=== PATIENT | female | born 1985 | race African-American/Black ===

== ENCOUNTER 2016-08-22 18:06 | Inpatient (IN) ==
[2016-08-22] MEDS ORDERED: SODIUM CHLORIDE 0.9% 1,000 ML IV STA ×2 (18:27→19:55)
--- NOTE | 2016-08-22 18:33 | Emergency Department Note ---
Sal Galdamez Mantricia, am scribing for, and in the presence of, Sylwia Philippe DO 18:30. IJose Martin Debra, DO, personally performed the services described in this documentation, ascribed by Nino Huang in my presence, and it is both accurate and complete 833 . Arrival - Arrival Stated Complaint: Body Aches, N,V Weakness ED Nursing Triage Note: C/o body aches, congestion, runny nose, cough, and subjective fever-onset 2 days ago. Mode of Arrival: Wheelchair Limitations: No Limitations Source: Patient - History of Present Illness HPI Narrative: Pt is a 31 y/o black female arriving to ED via wheelchair with c/o N/V that onset 2 days ago. Pt states that she is also experiencing body aches, cough, congestion, and SOB. She denies any long car rides or being around anyone sick to cause these symptoms. Pt admits to smoking daily. She has a PMHx of HTN. Pt reports no other complaints to ED. Onset (ago): day(s) Consistency: constant Date of Last Menstrual Period: "last week" Allergies/Adverse Reactions: Allergies Allergy/AdvReac Type Severity Reaction Status Date / Time No Known Allergies Allergy Verified 09/20/15 13:06 Home Medications: Home Medications Medication Instructions Recorded Confirmed Type No Known Home Medications [No 08/22/16 08/22/16 History Known Home Medications] Review of System - Review of System 12 point system: reviewed and no additional remarkable complaints except as stated - Review of System Constitutional: Present: fever. Absent: chills, diaphoresis Respiratory: Present: cough Cardiovascular: Present: dyspnea on exertion. Absent: chest pain Gastrointestinal: Present: abdominal pain, nausea, vomiting. Absent: diarrhea Musculoskeletal: Absent: arm pain, back pain, leg pain, neck pain Medical,Surgical,& Family Hx - Medical History Cardio: History of: Hypertension (chronic) - Surgical History Reproductive Surgeries: Surgical HX of;: Section (c/s x2) Patient denies;: Hysterectomy, Tubal Ligation - Family History Family History: Reports;: Family Diabetes (mother), Family Heart Disease (mother ), Family Stroke (mother) - Social History Smoking Status: Current every day smoker Frequency of Alcohol Use: Occasionally Type of Drug Use: None Exam Vital Signs: Vital Signs Temperature 102.1 F H 08/22/16 18:22 Pulse Rate 116 H 08/22/16 19:26 Respiratory Rate 24 08/22/16 19:26 Blood Pressure 185/111 08/22/16 18:45 O2 Sat by Pulse Oximetry 100 08/22/16 19:26 - General General appearance: alert, in no apparent distress, lethargic, obese, other ( poor hygiene) - Head Head exam: Present: atraumatic, normocephalic, normal inspection - Eye Eye exam: Present: normal appearance, PERRL, EOMI - ENT ENT exam: Present: normal exam, normal oropharynx, mucous membranes dry, TM's normal bilaterally, normal external ear exam - Neck Neck exam: Present: normal inspection, full ROM, trachea midline. Absent: tenderness - Chest Chest inspection: Present: normal inspection, symmetric chest wall rise. Absent : tenderness - Respiratory Respiratory exam: Present: normal lung sounds bilaterally, other (decreased breath sounds) - Cardiovascular Cardiovascular exam: Present: regular rate, normal rhythm, normal heart sounds - Abdominal Exam Abdominal exam: Present: soft, normal bowel sounds. Absent: distention, tenderness, guarding, rebound - Extremities Exam Extremities exam: Present: normal inspection, full ROM, normal capillary refill. Absent: tenderness, pedal edema - Back Exam Back exam: Present: normal inspection, full ROM. Absent: tenderness - Neurological Exam Neurological exam: Present: alert, oriented X3, CN II-XII intact, normal gait, reflexes normal - Psychiatric Psychiatric exam: Present: normal affect, normal mood - Skin Skin exam: Present: warm, dry, intact, normal color Course Course Narrative: spoke with hospitalist who will admit the pt. for pneumonia. pt is stable at this time Results - Labs CBC & BMP: 08/22/16 18:28 08/22/16 18:28 - Diagnostic Findings Procedure: Chest x-ray: report reviewed by me ( Findings which can be seen with so-called round pneumonia in the right upper to midlung zone. There is associated right hilar prominence which makes it difficult to exclude underlying adenopathy/mass and follow-up chest x-ray is recommended.) Disposition Clinical Impression: Pneumonia Case discussed with: patient, patient's family Disposition: Still a Patient Condition: Stable Time of Disposition: 21:46
[2016-08-22 18:43] LABS: Basophils % 0.1 % (0.0-0.8); Hematocrit 37.8 VOL% (35.7-47.0); Hemoglobin 13.3 GM/DL (12.0-16.0); Immature Granulocytes % 1.1 %; Immature Granulocytes Absolute 0.16 #; Lymphocytes # 0.9 10*3/uL (1.4-4.0); Lymphocytes % 5.8 % (21.3-54.2); Mean Corpuscular HGB Conc 35.2 GM/DL (32-36); Mean Corpuscular Hemoglobin 27 PG (27-34); Mean Corpuscular Volume 77.5 FL (87-102); Mean Platelet Volume 12.1 FL (9.6-12.0); Monocytes # 0.4 10*3/uL (0.11-0.8); Monocytes % 2.5 % (1.7-12.7); Neutrophils # 13.4 10*3/uL (1.4-7.4); Neutrophils % 90.5 % (38.7-73.9); Platelet Count 106 T/CUMM (130-400); Red Blood Count 4.88 MC/CUMM (3.8-5.5); Red Cell Distribution Width 15.2 % (9.3-17.3); White Blood Count 14.8 T/CUMM (4-12)
[2016-08-22] MEDS ORDERED: ACETAMINOPHEN 500 MG TABLET PO STA (18:54)
[2016-08-22] MEDS ORDERED: IBUPROFEN 800 MG TABLET PO STA (18:54)
[2016-08-22] MEDS ORDERED: IBUPROFEN 800 MG TABLET ONE (18:56)
[2016-08-22] MEDS ORDERED: ACETAMINOPHEN 500 MG TABLET ONE (18:57)
--- NOTE | 2016-08-22 18:59 | XRay Report ---
Portable chest Date: 08/22/2016 Clinical history: Shortness of breath Comparison: None Technique: Portable AP sitting chest Findings: The heart is normal in size. 102 mm rounded consolidation in the right upper to midlung zone with prominent right hilum. No acute osseous findings. Impression: Findings which can be seen with so-called round pneumonia in the right upper to midlung zone. There is associated right hilar prominence which makes it difficult to exclude underlying adenopathy/mass and follow-up chest x-ray is recommended. PROCEDURE INTERPRETED AT [facility] DEPARTMENT OF RADIOLOGY Final Report Signed by: Dr. Amalia Posey
[2016-08-22 19:11] LABS: Alanine Aminotransferase 24 U/L (13-56); Alkaline Phosphatase 47 U/L (45-117); Aspartate Amino Transferase 40 U/L (0-37); Blood Urea Nitrogen 11 MG/DL (7-18); Calcium 8.2 MG/DL (8.5-10.1); Glucose 137 MG/DL (74-106); Osmolality,Calculated 258.9 MOS/KG (273-304); Potassium 2.8 MMOL/L (3.5-5.1); Sodium 129 MMOL/L (136-145); Total Protein 7.8 G/DL (6.4-8.3); Troponin I Only 0.126 NG/ML (0.00-0.045)
[2016-08-22] MEDS ORDERED: ALBUTEROL/IPRATROPIUM 3 ML NEB RESP TX STA (19:12)
[2016-08-22] MEDS ORDERED: cefTRIAXone 1,000 MG in SODIUM CHLORIDE 0.9% 100 ML IV STA (19:12)
[2016-08-22] MEDS ORDERED: cefTRIAXone 1,000 MG VIAL ONE (19:25)
[2016-08-22] MEDS ORDERED: SODIUM CHLORIDE 0.9% 100 ML IV ONE (19:25)
[2016-08-22] MEDS ORDERED: HYDROcodone/CHLORPHENIRAMINE ER 5 ML UDCUP PO ONE ×2 (19:40→20:12)
[2016-08-22 19:42] LABS: Apearance,Urine CLOUDY (Clear); Bacteria,Urine Occasional /HPF (Few); Bilirubin,Urine Negative (Negative); Blood, Urine Large mg/dL (Negative); Glucose,Urine (UA) 50 mg/dL (Negative); Granular Casts,Urine 5 /LPF (0-1); Ketones,Urine Negative (Negative); Mucus,Urine Occasional /LPF (Occasional); Nitrite,Urine Negative (Negative); Protein,Urine 100 MG/DL; RBC,Urine 1 /HPF (0-4); Squamous Epithelial Cell,Urine Few /HPF (0-10); Urine Color Amber (Yellow); Urine Specific Gravity 1.018 (1.001-1.035); WBC,Urine 1 /HPF (0-6)
[2016-08-22] MEDS ORDERED: POTASSIUM CHLORIDE 20 MEQ TABLET PO STA (19:55)
[2016-08-22 19:56] LABS: Barbiturates Screen,Urine Negative (Negative); Benzodiazepines Screen,Urine Negative (Negative); Cannabinoid Screen,Urine Positive (Negative); Opiate Screen,Urine Negative (Negative); Phencyclidine Screen,Urine Negative (Negative)
[2016-08-22] MEDS ORDERED: POTASSIUM CHLORIDE 20 MEQ TABLET PO ONE ×2 (20:12→22:22)
--- NOTE | 2016-08-22 21:35 | CT Report ---
Exam: CT chest with contrast, PE study Date: 08/22/2016 Comparison: Chest x-ray 08/22/2016 Reason: Shortness of breath, tachycardia Technique: Axial images of the chest were obtained after administration of 80 cc of IV Omnipaque 350 intravenous contrast. Coronal reformatted images were also acquired. The study was performed per pulmonary embolism protocol. Total DLP: 376.80 Findings: There is no evidence of pulmonary embolism through the segmental pulmonary arteries. Suboptimal contrast in the subsegmental pulmonary arteries. The heart is in normal in size with no pericardial effusion. No evidence of aortic dissection. Dense consolidation/atelectasis in the right upper lobe with air bronchograms. There is associated diffuse hilar density which makes it difficult to exclude minimal right hilar adenopathy. No pleural effusion with minimal atelectasis/infiltration in the right lower lobe. Impression: Right upper lobe pneumonia with associated atelectasis. It is difficult to exclude minimal adenopathy or other pathology at the level of the right hilum and continued follow-up chest x-ray is recommended document clearing. No definite pulmonary emboli in the opacified pulmonary arteries. This CT exam was performed using one or more the following dose reduction techniques: Automated exposure control, adjustment of the MA and/or KV according to patient size, or use of iterative reconstruction technique. PROCEDURE INTERPRETED AT [facility] DEPARTMENT OF RADIOLOGY Final Report Signed by: Dr. Amalia Posey
[2016-08-22] MEDS ORDERED: BISACODYL 5 MG TABLET PO PRN (22:14)
[2016-08-22] MEDS ORDERED: ALBUTEROL 2.5 MG/3 ML NEB RESP TX PRN (22:14)
[2016-08-22] MEDS ORDERED: guaiFENesin/DM ER 600-30 MG TABLET PO PRN (22:14)
[2016-08-22] MEDS ORDERED: LACTATED RINGERS IV ONE (22:18)
--- NOTE | 2016-08-22 22:30 | Hospitalist History & Physical ---
Assessment and Plan - Time spent with patient Time spent with patient: Greater than 30 minutes (1) Pneumonia Status: Acute Assessment and plan: Chest x-ray shows right lung pneumonia. Patient given a gram of Rocephin in ER patient will be admitted to the ICU on aztreonam and Levaquin with DuoNeb. Consult pulmonology. Current Visit: Yes (2) Encephalopathy, metabolic Status: Acute Assessment and plan: Admit to ICU for electrolyte correction. Current Visit: Yes (3) Sepsis Status: Acute Assessment and plan: Patient is tachycardic with a heart rate in the 120s, tachypneic, lactic acid 2.1. Patient admitted to the ICU on broad-spectrum antibiotics and IV fluid resuscitation. Current Visit: Yes (4) Acute kidney failure Status: Acute Assessment and plan: Creatinine 1.5. Gentle IV hydration. Current Visit: Yes (5) Hypertension Status: Acute Assessment and plan: Continue to monitor BP. Continue home meds. Current Visit: Yes (6) Hypokalemia Status: Acute Current Visit: Yes (7) Hyponatremia Status: Acute Current Visit: Yes History of Present Illness Chief complaint: fever, productive cough History of present illness: Ms. Pizarro is a 31 year old black female with a past medical history significant for hypertension who presents to the ER tonight with complaints of fatigue, fever and cough x 2 days. At the time of the exam, the patient is lethargic and difficult to arouse; however, her sister is at bedside and provided much of the history that we were able to glean. 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 Her sister, whom she lives with, reports that the patient has been extremely lethargic since Friday , sleeping most of Friday and . She also reports that the patient does have a cough productive of clear/white sputum. Patient was briefly aroused by shaking and sternal rub. She denies headache, chest pain, abdominal pain, change in bowel habits. CXR shows pneumonia in the right upper/middle lobe. Patient is tachycardic with a heart rate 120s, respiratory rate 18-35. Labs are remarkable for WBC 14.8, sodium 129, potassium 2.8, chloride 95, BUN 11, creatinine 1.5, glucose 137, lactic acid 2.1, total creatinine kinase 1191, troponin 0.126. Urine drug screen is positive for amphetamine/methamphetamine and cannabinoids. Urinalysis is positive for UTI. Case been discussed with Dr. Ayon, admitting physician, and patient will be admitted to the ICU with sepsis and pneumonia. Patient is a full code. Home meds have been reviewed and reconciled. Home Medications Medication Instructions Recorded Confirmed Type No Known Home Medications [No 08/22/16 08/22/16 History Known Home Medications] Allergies Allergy/AdvReac Type Severity Reaction Status Date / Time No Known Allergies Allergy Verified 09/20/15 13:06 Medical,Surgical,& Family Hx - Medical History Cardio: History of: Hypertension (chronic) - Surgical History Reproductive Surgeries: Surgical HX of;: Section (c/s x2) Patient denies;: Hysterectomy, Tubal Ligation - Family History Family History: Reports;: Family Diabetes (mother), Family Heart Disease (mother ), Family Stroke (mother) - Social History Smoking Status: Current every day smoker Frequency of Alcohol Use: Occasionally Type of Drug Use: None Marital Status: Single Lives With:: Sibling Functional capacity: independent ambulation ROS unobtainable: due to encephalopathy, other (decreased level of consciousness ) Exam - Constitutional Vitals: Period Temp Pulse Resp BP Sys/Segundo Pulse Ox Last 24 Hr 102.1 F-102.1 F 115-121 18-35 152-185/100-111 96-100 General appearance: mild distress, morbidly obese - Head Head exam: Present: normal inspection, normocephalic, atraumatic - Eye Eye exam: Present: EOMI Pupils: Present: GABRIELLE - ENT ENT exam: Present: normal exam, normal external ear exam - Neck Neck exam: Present: normal inspection. Absent: lymphadenopathy, tenderness - Respiratory Respiratory exam: Present: decreased breath sounds, rhonchi. Absent: rales, stridor, wheezes - Cardiovascular Cardiovascular exam: Present: tachycardia. Absent: carotid bruit, rubs - GI/Abdominal GI/Abdominal exam: Present: normal bowel sounds, soft. Absent: guarding, mass, tenderness, rebound - Extremities Exam Extremities exam: Present: normal inspection, normal capillary refill, full ROM. Absent: edema - Neurological Exam Neurological exam: Present: CN II-XII intact, reflexes normal - Psychiatric Psychiatric exam: Present: flat affect - Skin Skin exam: Present: normal color, warm, dry, intact. Absent: cyanosis, mottled Results - Labs CBC & BMP: 08/22/16 18:28 08/22/16 18:28 Lab Results: I have reviewed the past 24 hour labs - Diagnostic Findings Procedure: Chest x-ray: image reviewed by me, report reviewed by me, CT - chest : image reviewed by me, report reviewed by me Sepsis - Sepsis Classification of Sepsis: Sepsis - Physical Exam Physical Exam: On physical exam, patient is tachypneic, tachycardic with an elevated white count of 14.8 and lactic acid of 2.1. - Physical Exam Respiratory exam: decreased breath sounds, rhonchi Capillary Refill: Less Than 3 Seconds Peripheral pulses: Radial (L): 2+, Radial (R): 2+, Dorsalis Pedis (L) PM: 2+, Dorsalis Pedis (R) PM: 2+ Cardiovascular exam: tachycardia Skin exam: normal color
[2016-08-23] MEDS: ALBUTEROL/IPRATROPIUM 3 ML NEB RESP TX SCH ×4 (00:13→19:31)
[2016-08-23] MEDS: ENOXAPARIN 40 MG/0.4 ML SYRINGE SUBCUT SCH ×2 (00:41→22:24)
[2016-08-23] MEDS: LEVOFLOXACIN INJ 750 MG in PREMIX 1 EACH IV SCH (00:41)
[2016-08-23 01:50] LABS: Albumin 2.6 G/DL (3.4-5.0); Bilirubin,Total 0.5 MG/DL (0.2-1.0); Calcium 7.5 MG/DL (8.5-10.1); Magnesium 1.4 MG/DL (1.8-2.4); Osmolality,Calculated 267.2 MOS/KG (273-304); Total Protein 5.9 G/DL (6.4-8.3)
[2016-08-23] MEDS: AZTREONAM 2,000 MG in SODIUM CHLORIDE 0.9% 100 ML IV SCH ×4 (02:30→18:46)
[2016-08-23] MEDS: ONDANSETRON 4 MG/2 ML VIAL IV PRN (02:31)
[2016-08-23] MEDS: SODIUM CHLORIDE 0.9% 1,000 ML IV SCH ×4 (02:49→22:24)
[2016-08-23 03:15] LABS: ABG Base Excess -1.5 MMOL/L (-2.5-2.5); ABG Oxygen Saturation 92.1 % (95-100); ABG PCO2 35.1 MM HG (35-48); ABG PH 7.414 (7.35-7.45); ABG PO2 62.6 MM HG (80-95); ABG TCO2 19.9 MMOL/L (23-27); Allen Test Positive
[2016-08-23] MEDS ORDERED: MAGNESIUM SULF RIDER 2 GM in PREMIX 1 EACH IV ONE (03:46)
[2016-08-23 04:47] LABS: Basophils # 0.1 10*3/uL (0.0-0.2); Basophils % 0.5 % (0.0-0.8); Hematocrit 34.1 VOL% (35.7-47.0); Hemoglobin 11.6 GM/DL (12.0-16.0); Immature Granulocytes % 7.1 %; Immature Granulocytes Absolute 0.71 #; Lymphocytes # 0.6 10*3/uL (1.4-4.0); Lymphocytes % 5.8 % (21.3-54.2); Mean Corpuscular Hemoglobin 27 PG (27-34); Mean Corpuscular Volume 78.2 FL (87-102); Mean Platelet Volume 11.7 FL (9.6-12.0); Monocytes # 0.3 10*3/uL (0.11-0.8); Monocytes % 3.2 % (1.7-12.7); Neutrophils # 8.3 10*3/uL (1.4-7.4); Neutrophils % 83.4 % (38.7-73.9); Red Blood Count 4.36 MC/CUMM (3.8-5.5); Red Cell Distribution Width 15.6 % (9.3-17.3)
[2016-08-23 04:50] LABS: Platelet Count 96 T/CUMM (130-400)
[2016-08-23 05:14] LABS: Band Neutrophils 8 % (0-10); Burr Cells Slight; Hypochromasia 1+; Lymphocytes 6 % (20-55); Ovalocytes Slight; Platelet Estimate Decreased; Segmented Neutrophils 84 % (50-85); Total Cells Counted 100
--- NOTE | 2016-08-23 07:30 | EKG Report ---
Stationary ECG Study [facility] ER Test Date: 08/22/2016 6:51:19 PM Pat Name: JOSE MIGUEL NEW Department: Room: 119 Gender: F [employer]: : 1985 Requested by: Sylwia Philippe Order Number: [id number] Reading MD: MALLORIE GARCIA Intervals [place] Rate: 118 P: 65 IA: 124 QRS: 79 QRSD: 90 T: -11 QT: 340 QTc: 410 Interpretive Statements SINUS TACHYCARDIA Electronically Signed On 08-23-16 11:48:58 CDT by MALLORIE GARCIA [email or web address]
--- NOTE | 2016-08-23 07:54 | Pulmonology Consult Note ---
Assessment and Plan (1) Smoker Status: Acute Assessment and plan: The patient certainly needs to quit smoking and will give her a nicotine patch. Current Visit: Yes (2) Pneumonia Status: Acute Assessment and plan: Patient has a significant right upper lobe pneumonia and she will continue with IV antibiotics. Current Visit: Yes Qualifiers: Laterality: right Lung location: upper lobe of lung (3) Sepsis Status: Acute Assessment and plan: Patient came in lethargic with fever and tachycardia and elevated lactic acid level with dehydration and was felt to be septic. She is getting fluids and antibiotics. Current Visit: Yes (4) Hyponatremia Status: Acute Assessment and plan: Her sodium is up to 134 today. Current Visit: Yes (5) Hypokalemia Status: Acute Assessment and plan: Her potassium was 2.8 but now is 3.0. Current Visit: Yes (6) Hypertension Status: Acute Assessment and plan: Patient has a history of hypertension and this will be watched closely. Current Visit: Yes History of Present Illness Chief complaint: Pneumonia History of present illness: Ms. Pizarro is a 31 year old black female that is a smoker and has a history of hypertension. She has been in fairly good health until about 2 or 3 days ago. She says she started having some fatigue and chills and maybe a little fever. She has been coughing some and yesterday she was very short of breath. She felt worse so she came in and was found to have a significant right upper lobe pneumonia. She is admitted for further treatment. She works at [employer] and says she gets hot and cold frequently. She has never had any lung problems. She says she smokes less than a pack a day. She does smoke marijuana. She is otherwise been in reasonably good health. Home Medications Medication Instructions Recorded Confirmed Type No Known Home Medications [No 08/22/16 08/22/16 History Known Home Medications] Allergies Allergy/AdvReac Type Severity Reaction Status Date / Time No Known Allergies Allergy Verified 09/20/15 13:06 - Constitutional Constitutional: Present: chills, fatigue, fever(s). Absent: weight loss - EENT Eyes: Absent: loss of vision Ears: Absent: decreased hearing Nose, mouth and throat: Absent: dysphagia, headache(s), sinus pressure, sore throat - Cardiovascular Cardiovascular: Present: chest pain at rest, dyspnea on exertion. Absent: edema , orthopnea, palpitations, PND - Respiratory Respiratory: Present: cough, dyspnea, wheezing, pain on inspiration, change in phlegm color (She has had minimal sputum). Absent: hemoptysis - Gastrointestinal Gastrointestinal: Absent: abdominal pain, change in bowel habits, dysphagia, nausea, vomiting - Genitourinary Genitourinary: Absent: difficulty urinating, dysuria, hematuria, urinary frequency - Musculoskeletal Musculoskeletal: Absent: arthralgias, muscle weakness - Neurological Neurological: Absent: abnormal speech, focal weakness, paresthesias - Psychiatric Psychiatric: Absent: anxiety, depression Exam (Pulmonay) H&P - Constitutional Vitals: Period Temp Pulse Resp BP Sys/Segundo Pulse Ox Last 24 Hr 96.6 F-102.1 F 85-121 16-35 100-185/63-111 93-100 General appearance: mild distress (She does have some coughing and shortness of breath), over weight - Head Head exam: Present: normal inspection, normocephalic - Eye Eye exam: Present: EOMI. Absent: scleral icterus Pupils: Present: GABRIELLE - ENT ENT exam: Present: normal exam - Neck Neck exam: Present: normal inspection. Absent: lymphadenopathy, thyromegaly - Respiratory Respiratory exam: Present: decreased breath sounds (She has some coarse breath sounds in rales in the right upper lobe), rales, rhonchi. Absent: wheezes - Cardiovascular Cardiovascular exam: Present: regular rate and rhythm. Absent: gallop, systolic murmur - GI/Abdominal GI/Abdominal exam: Present: normal bowel sounds, soft. Absent: organomegaly, tenderness - Extremities Exam Extremities exam: Absent: calf tenderness, edema - Neurological Exam Neurological exam: Present: alert, oriented X3, CN II-XII intact. Absent: motor sensory deficit - Psychiatric Psychiatric exam: Present: normal affect - Skin Skin exam: Present: warm, dry Medical,Surgical,& Family Hx - Medical History Cardio: History of: Hypertension (chronic) - Surgical History Reproductive Surgeries: Surgical HX of;: Section (c/s x2) Patient denies;: Hysterectomy, Tubal Ligation - Family History Family History: Reports;: Family Diabetes (mother), Family Heart Disease (mother ), Family Stroke (mother) - Social History Smoking Status: Current every day smoker Frequency of Alcohol Use: Occasionally Type of Drug Use: None Results - Labs CBC & BMP: 08/23/16 04:39 08/23/16 01:09 Labs: Her PO2 62 with a PCO2 of 35 and a pH of 7.41 on 2 L. - Diagnostic Findings Procedure: Chest x-ray: image reviewed by me, report reviewed by me (Chest x- ray shows a large area of consolidation in the right upper lobe.), CT - chest: image reviewed by me, report reviewed by me (CT confirms extensive right upper lobe pneumonia.)
[2016-08-23] MEDS ORDERED: POTASSIUM CHLORIDE 20 MEQ TABLET PO ONE (09:14)
[2016-08-23] MEDS: PANTOPRAZOLE 40 MG TABLET PO SCH (09:33)
[2016-08-23] MEDS: methylPREDNISolone SOD SUC 40 MG/1 ML VIAL IV SCH ×2 (09:35→16:52)
[2016-08-23] MEDS: NICOTINE 14 MG/24 HR PATCH TRANSDERM SCH (09:39)
--- NOTE | 2016-08-23 10:23 | Hospitalist Progress Note ---
Assessment and Plan (1) Pneumonia Status: Acute Assessment and plan: 1)sepsis- BP stable but lactic acid now 2.8 after hydartion up from 2.1. She is deeply asleep and difficult to arouse. Continue levaquin and azactam for pneumonia in her RUL. Sats good on 2L NC. repeat lactic acid this afternoon. 2)BEL- creatinine is 1.3, coming down. 3)hyponatremia- improved 4)hypokalemia- replace again and recheck this afternoon 5)drug use- positive for meth and MJ in your urine. 6)altered mental status- check head CT- too sleepy to cooperate with exam. Current Visit: Yes Qualifiers: Laterality: right Lung location: upper lobe of lung (2) Sepsis Status: Acute Current Visit: Yes (3) Hyponatremia Status: Acute Current Visit: Yes (4) Acute kidney failure Status: Acute Current Visit: Yes (5) Hypokalemia Status: Acute Current Visit: Yes (6) Hypertension Status: Acute Current Visit: Yes (7) Encephalopathy, metabolic Status: Acute Current Visit: Yes (8) Smoker Status: Acute Current Visit: Yes Hospitalist: Subjective Interval history: Mrs Pizarro remains sleepy but responds to touch and then goes back to sleep. Repeat lactic acid increased a bit despite over 4L IVF given. Her BP is stable, sats good, heart rate in 80s. Exam - Constitutional Vitals: Period Temp Pulse Resp BP Sys/Segundo Pulse Ox Last 24 Hr 96.6 F-102.1 F 85-121 16-35 100-185/63-111 92-100 General appearance: no acute distress, over weight - Head Head exam: Present: normocephalic, atraumatic - Eye Eye exam: Present: EOMI Pupils: Present: GABRIELLE - Respiratory Respiratory exam: Present: rhonchi (bilateral, snoring also) - Cardiovascular Cardiovascular exam: Present: regular rate and rhythm - GI/Abdominal GI/Abdominal exam: Present: normal bowel sounds, soft. Absent: tenderness - Extremities Exam Extremities exam: Absent: edema - Skin Skin exam: Present: warm, dry. Absent: rash Results - Labs CBC & BMP: 08/23/16 04:39 08/23/16 01:09 Lab Results: I have reviewed the past 24 hour labs
--- NOTE | 2016-08-23 11:00 | CT Report ---
Referring physician: Veronika Rojo Exam: CT brain without contrast Date: 08/23/2016 Comparison: None Reason: Lethargy, sepsis Technique: Axial images of the head were obtained without the use of contrast. Total DLP was 1103.60 mGy*cm. Findings: No hydrocephalus or midline shift is present. There is no evidence of an acute infarction, recent intracranial hemorrhage or abnormal mass effect. Benign calcifications with possible empty sella.. The osseous structures appear intact. The mastoid air cells are clear. Mucosal thickening/fluid in the paranasal sinuses, especially the left sphenoid sinus. Impression: No acute intracranial abnormality is identified. Benign calcifications with possible empty sella. Significant left sphenoid sinusitis. The CT exam was performed using one or more of the following dose reduction techniques: Automated exposure control and adjustment of the mA and/or kV according to patient size. PROCEDURE INTERPRETED AT [facility] DEPARTMENT OF RADIOLOGY Final Report Signed by: Dr. Amalia Posey
[2016-08-23 14:18] LABS: Calcium 7.3 MG/DL (8.5-10.1); Osmolality,Calculated 272.8 MOS/KG (273-304); Potassium 4.2 MMOL/L (3.5-5.1)
[2016-08-24] MEDS: LEVOFLOXACIN INJ 750 MG in PREMIX 1 EACH IV SCH ×2 (00:24→23:45)
[2016-08-24] MEDS: methylPREDNISolone SOD SUC 40 MG/1 ML VIAL IV SCH ×4 (00:25→20:53)
[2016-08-24] MEDS: AZTREONAM 2,000 MG in SODIUM CHLORIDE 0.9% 100 ML IV SCH ×4 (00:25→19:30)
[2016-08-24] MEDS: ALBUTEROL/IPRATROPIUM 3 ML NEB RESP TX SCH ×4 (01:48→19:00)
[2016-08-24 03:40] LABS: Allen Test Positive; Pt O2 Delivery Device Room Air
[2016-08-24 03:41] LABS: ABG Base Excess -1.1 MMOL/L (-2.5-2.5); ABG HCO3 23.3 MMOL/L (20-26); ABG Oxygen Saturation 86.4 % (95-100); ABG PCO2 36.2 MM HG (35-48); ABG PH 7.412 (7.35-7.45); ABG PO2 50.4 MM HG (80-95); ABG TCO2 20.8 MMOL/L (23-27)
[2016-08-24 04:44] LABS: Basophils # 0.1 10*3/uL (0.0-0.2); Basophils % 0.9 % (0.0-0.8); Hematocrit 29.9 VOL% (35.7-47.0); Hemoglobin 10.3 GM/DL (12.0-16.0); Immature Granulocytes % 4.3 %; Immature Granulocytes Absolute 0.28 #; Lymphocytes # 0.4 10*3/uL (1.4-4.0); Lymphocytes % 6.1 % (21.3-54.2); Mean Corpuscular HGB Conc 34.4 GM/DL (32-36); Mean Corpuscular Hemoglobin 27 PG (27-34); Mean Corpuscular Volume 77.3 FL (87-102); Mean Platelet Volume 11.9 FL (9.6-12.0); Monocytes # 0.1 10*3/uL (0.11-0.8); Monocytes % 1.8 % (1.7-12.7); Neutrophils # 5.7 10*3/uL (1.4-7.4); Neutrophils % 86.9 % (38.7-73.9); Platelet Count 84 T/CUMM (130-400); Red Blood Count 3.87 MC/CUMM (3.8-5.5); Red Cell Distribution Width 16.1 % (9.3-17.3); White Blood Count 6.5 T/CUMM (4-12)
[2016-08-24 05:17] LABS: Albumin 2.1 G/DL (3.4-5.0); Bilirubin,Total 0.7 MG/DL (0.2-1.0); Calcium 7.7 MG/DL (8.5-10.1); Osmolality,Calculated 279.4 MOS/KG (273-304); Potassium 3.9 MMOL/L (3.5-5.1); Total Protein 5.4 G/DL (6.4-8.3)
[2016-08-24] MEDS: SODIUM CHLORIDE 0.9% 1,000 ML IV SCH ×2 (05:23→06:30)
[2016-08-24 05:35] LABS: Band Neutrophils 6 % (0-10); Hypochromasia 2+; Lymphocytes 5 % (20-55); Metamyelocytes 4 %; Platelet Estimate Decreased; Segmented Neutrophils 85 % (50-85); Total Cells Counted 100
[2016-08-24] MEDS: NICOTINE 14 MG/24 HR PATCH TRANSDERM SCH (09:04)
[2016-08-24] MEDS: PANTOPRAZOLE 40 MG TABLET PO SCH (09:06)
[2016-08-24] MEDS: LISINOPRIL 10 MG TABLET PO SCH (09:06)
--- NOTE | 2016-08-24 09:28 | Pulmonology Progress Note ---
Pulmonary - PN: Subj Interval history: Is a 31-year-old black lady who is a smoker. She has high blood pressure. She has been fairly healthy and she works as [employer]. 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 Was worried that her respiratory distress would worsen but it has now improved and she appears to be stable. Her potassium is been replaced to 3.9. Her blood pressure is up and she recalls that she was on lisinopril. She does not know the dose so we will begin with 10 mg daily. She has no complaints and no new requests. ABGs on room air show a pH of 7.41, PCO2 of 36.2, PO2 of 50.4, bicarb of 23.3 Microbiology. No positive cultures. Lab. Electrolytes are normal. Creatinine is 0.8 with a BUN of 11. Liver function tests are normal. Protein and albumin are low at 5.4 and 2.1 respectively. White blood cell count is dropped from 14,000 806,500 with 87 segs. H&H has dropped to 10.3/29.9 with decrease indices platelet count is dropped to 84,000. Physical exam. Vital signs see below Psychiatric oriented 3 Neurologic. Cranial nerves are intact. Patient moves all 4 extremities. Face is symmetrical. There is no swelling of the lips or tongue. Neck. Symmetrical. No meningismus. Lymphatics. No 7 mandibular cervical or supraclavicular adenopathy. Chest. Loose large airway congestion and a very mild large airway wheeze on the right mainstem bronchus. Heart. No gallop Abdomen. Nontender. Positive bowel sounds Extremities. Nothing to suggest deep venous thrombophlebitis The remainder the physical exam is negative. Plan. 1. Continue present therapy. 2. Monitor anemia, thrombocytopenia and blood pressure 3. Start lisinopril 10 mg daily. Note the patient does not know what dose she takes at home Exam (Progress Note) - Constitutional Vitals: Period Temp Pulse Resp BP Sys/Segundo Pulse Ox Last 24 Hr 98.5 F-98.8 F 64-99 13-38 119-158/71-105 93-100 Results - Labs CBC & BMP: 08/24/16 04:28 08/24/16 04:28
--- NOTE | 2016-08-24 12:24 | Hospitalist Progress Note ---
Assessment and Plan - Time spent with patient Time spent with patient: Less than 30 minutes (1) Acute kidney failure Status: Acute Assessment and plan: Sepsis: BP stable; repeat Lactic acid trending downward to 2.2. she is awake and alert and answering questions appropriately. continue levaquin and azactam for pneumonia in her RUL. Sats are good at 96% on room air. Dr Sultana was consulted for right pneumonia for further evaluation. BEL - improved - Creatinine : 0.80 this a.m. hyponatremia - resolved - NA 140 hypkalemia - resolved - 3.9 hypertension - improved 123/85 - 146/84; Dr Sultana started Patient on Lisinopril 10mg dly. altered mental status - Awake, Alert and oriented and answering questions appropriately.CT report no acute intracranial abnormality is identified. Plan to taper steroids; INT fluids; Transfer to Floor. Continue medication regimen; and Dr Sultana started lisinopril and will continue to monitor BP. Current Visit: Yes (2) Encephalopathy, metabolic Status: Acute Current Visit: Yes (3) Hyponatremia Status: Acute Current Visit: Yes (4) Sepsis Status: Acute Current Visit: Yes Hospitalist: Subjective Interval history: Ms Pizarro had a better night and was able to eat this a.m.; tolerating very well. Exam - Constitutional Vitals: Period Temp Pulse Resp BP Sys/Segundo Pulse Ox Last 24 Hr 98.5 F-98.8 F 64-99 13-38 120-158/74-105 93-100 General appearance: no acute distress, over weight - Head Head exam: Present: normal inspection - Eye Eye exam: Present: EOMI Pupils: Present: GABRIELLE - Neck Neck exam: Present: normal inspection - Respiratory Respiratory exam: Present: other (right upper posterior coarseness ) - Cardiovascular Cardiovascular exam: Present: regular rate and rhythm - GI/Abdominal GI/Abdominal exam: Present: normal bowel sounds, soft. Absent: firm, guarding, tenderness, rebound - Extremities Exam Extremities exam: Present: normal inspection, full ROM - Neurological Exam Neurological exam: Present: alert, oriented X3 - Psychiatric Psychiatric exam: Present: normal affect, normal mood - Skin Skin exam: Present: normal color, warm, dry Results - Labs CBC & BMP: 08/24/16 04:28 08/24/16 04:28 Lab Results: I have reviewed the past 24 hour labs
[2016-08-24] MEDS ORDERED: hydrALAZINE 20 MG/1 ML VIAL IV PRN (15:47)
[2016-08-24] MEDS: amLODIPine 10 MG TABLET PO SCH (15:54)
[2016-08-24] MEDS: ACETAMINOPHEN 325 MG TABLET PO PRN (20:54)
[2016-08-24] MEDS: ENOXAPARIN 40 MG/0.4 ML SYRINGE SUBCUT SCH (23:44)
[2016-08-25] MEDS: ALBUTEROL/IPRATROPIUM 3 ML NEB RESP TX SCH ×4 (00:10→19:48)
[2016-08-25] MEDS: ACETAMINOPHEN 325 MG TABLET PO PRN ×4 (00:25→18:28)
[2016-08-25] MEDS: AZTREONAM 2,000 MG in SODIUM CHLORIDE 0.9% 100 ML IV SCH ×4 (01:46→21:11)
[2016-08-25 05:41] LABS: Basophils # 0.1 10*3/uL (0.0-0.2); Basophils % 0.7 % (0.0-0.8); Hematocrit 31.9 VOL% (35.7-47.0); Immature Granulocytes % 4.9 %; Immature Granulocytes Absolute 0.44 #; Lymphocytes # 0.5 10*3/uL (1.4-4.0); Mean Corpuscular HGB Conc 34.5 GM/DL (32-36); Mean Corpuscular Hemoglobin 27 PG (27-34); Mean Corpuscular Volume 77.6 FL (87-102); Mean Platelet Volume 12.5 FL (9.6-12.0); Monocytes # 0.4 10*3/uL (0.11-0.8); Monocytes % 3.9 % (1.7-12.7); Neutrophils # 7.6 10*3/uL (1.4-7.4); Neutrophils % 84.5 % (38.7-73.9); Red Blood Count 4.11 MC/CUMM (3.8-5.5); Red Cell Distribution Width 15.9 % (9.3-17.3)
[2016-08-25 05:47] LABS: Platelet Count 95 T/CUMM (130-400)
[2016-08-25 06:16] LABS: Calcium 8.3 MG/DL (8.5-10.1); Osmolality,Calculated 276.5 MOS/KG (273-304)
[2016-08-25 07:05] LABS: Band Neutrophils 2 % (0-10); Hypochromasia 1+; Lymphocytes 5 % (20-55); Ovalocytes Slight; Platelet Estimate Decreased; Segmented Neutrophils 92 % (50-85); Total Cells Counted 100
[2016-08-25] MEDS: methylPREDNISolone SOD SUC 40 MG/1 ML VIAL IV SCH ×2 (08:41→21:12)
[2016-08-25] MEDS: NICOTINE 14 MG/24 HR PATCH TRANSDERM SCH (08:42)
[2016-08-25] MEDS: PANTOPRAZOLE 40 MG TABLET PO SCH (08:45)
[2016-08-25] MEDS: LISINOPRIL 10 MG TABLET PO SCH (08:46)
[2016-08-25] MEDS: amLODIPine 10 MG TABLET PO SCH (08:50)
[2016-08-25] MEDS: ONDANSETRON 4 MG/2 ML VIAL IV PRN (08:56)
--- NOTE | 2016-08-25 11:14 | Hospitalist Progress Note ---
Assessment and Plan (1) Pneumonia Status: Acute Assessment and plan: The patient was previously on Levaquin and Azactam; WBCs are noted at 9; however the patient has a left shift with neutrophil percentage noted at 84.5. The patient has been febrile this morning with T-max noted at 101.8. We will obtain blood cultures, discontinue Levaquin and Azactam; and start vancomycin. Sputum culture preliminary for gram-positive cocci yeast; we will start fluconazole 200 mg IV daily. Influenza has been negative thus far. In addition , we will obtain HIV panel and hepatitis panel for good measures. Will recheck labs and chest x-ray in a.m. Current Visit: Yes Qualifiers: Laterality: right Lung location: upper lobe of lung Hospitalist: Subjective Interval history: Patient seen and examined; patient remains febrile; T-max 101.8 on this morning at 715. Exam - Constitutional Vitals: Period Temp Pulse Resp BP Sys/Segundo Pulse Ox Last 24 Hr 98.0 F-101.8 F 81-115 14-22 148-170/74-122 92-100 General appearance: normal weight, no acute distress - Head Head exam: Present: normal inspection, normocephalic - Eye Eye exam: Present: EOMI. Absent: conjunctival injection Pupils: Present: GABRIELLE, normal accommodation - ENT ENT exam: Present: normal exam, normal external ear exam, normal oropharynx - Neck Neck exam: Present: normal inspection. Absent: lymphadenopathy, meningismus, tenderness, thyromegaly - Respiratory Respiratory exam: Present: rhonchi. Absent: rales, stridor, wheezes - Cardiovascular Cardiovascular exam: Present: regular rate and rhythm - GI/Abdominal GI/Abdominal exam: Present: normal bowel sounds, soft - Extremities Exam Extremities exam: Present: normal inspection, normal capillary refill, full ROM. Absent: edema - Back Exam Back exam: Present: normal inspection - Neurological Exam Neurological exam: Present: alert, oriented X3, CN II-XII intact - Psychiatric Psychiatric exam: Present: flat affect - Skin Skin exam: Present: normal color, warm, dry Results - Labs CBC & BMP: 08/25/16 05:30 08/25/16 05:30 Lab Results: I have reviewed the past 24 hour labs
[2016-08-25] MEDS ORDERED: FLUCONAZOLE INJ 200 MG in PREMIX 1 EACH IV SCH (11:30)
--- NOTE | 2016-08-25 13:00 | Pulmonology Progress Note ---
Pulmonary - PN: Subj Interval history: Is a 31-year-old black lady who is a smoker. She has high blood pressure. She has been fairly healthy and she works as [employer]. She was admitted with several days of lethargy and cough and fever and to [facility] to have a large consolidated right upper lung pneumonia. Was worried that her respiratory distress would worsen but it has now improved and she appears to be stable. Her potassium is been replaced to 3.9. Her blood pressure is up and she recalls that she was on lisinopril. She does not know the dose so we will begin with 10 mg daily. She has no complaints and no new requests. ABGs on room air show a pH of 7.41, PCO2 of 36.2, PO2 of 50.4, bicarb of 23.3 Microbiology. No positive cultures. Lab. Electrolytes are normal. Creatinine is 0.8 with a BUN of 11. Liver function tests are normal. Protein and albumin are low at 5.4 and 2.1 respectively. White blood cell count is dropped from 14,000 806,500 with 87 segs. H&H has dropped to 10.3/29.9 with decrease indices platelet count is dropped to 84,000. 08/25/2016. Patient's breathing is much better today. She has a lot less large airway wheezing congestion she is moving air much better. CBC is stable electrolytes are normal creatinine is 1.0 BUNs 11 calcium is 8.3 protein and albumin are low at 5.2 and 2.1 respectively. There are no new microbiology reports. There are no new procedure reports. Labs been reviewed. Medicines have been reviewed. Physical exam. Vital signs see below Psychiatric oriented 3 Neurologic. Cranial nerves are intact. Patient moves all 4 extremities. Face is symmetrical. There is no swelling of the lips or tongue. Neck. Symmetrical. No meningismus. Lymphatics. No 7 mandibular cervical or supraclavicular adenopathy. Chest. Loose large airway congestion and a very mild large airway wheeze on the right mainstem bronchus has improved significantly since 08/24/2016. There is still very mild large airway wheeze but expiration is much more complete and a lot less congested.. Heart. No gallop Abdomen. Nontender. Positive bowel sounds Extremities. Nothing to suggest deep venous thrombophlebitis The remainder the physical exam is negative. Plan. 08/24/2016 1. Continue present therapy. 2. Monitor anemia, thrombocytopenia and blood pressure 3. Start lisinopril 10 mg daily. Note the patient does not know what dose she takes at home 08/25/2016. 1. See today's note above 2. Dr. mercedes Orlando will see the patient tomorrow. Exam (Progress Note) - Constitutional Vitals: Period Temp Pulse Resp BP Sys/Segundo Pulse Ox Last 24 Hr 99.2 F-101.8 F 81-115 18-22 144-170/74-122 92-100 Results - Labs CBC & BMP: 08/25/16 05:30 08/25/16 05:30
[2016-08-25 13:51] LABS: Hepatitis A Ab IgM Quant 0.05 Index; Hepatitis A Ab IgM Result Negative (Negative); Hepatitis B Core IgM Quant 0.14 Index; Hepatitis B Core IgM Result Negative (Negative); Hepatitis B Surface Ag Quant < 0.10 Index; Hepatitis B Surface Ag Result Negative (Negative); Hepatitis C Virus Ab Quant 0.02 Index; Hepatitis C Virus Ab Result Negative (Negative)
[2016-08-25] MEDS: FLUCONAZOLE INJ 100 MG in IV BAG 1 EACH IV SCH (14:02)
[2016-08-25] MEDS: VANCOMYCIN INJ 1,500 MG in SODIUM CHLORIDE 0.9% 500 ML IV SCH (14:24)
[2016-08-25] MEDS: ENOXAPARIN 40 MG/0.4 ML SYRINGE SUBCUT SCH (22:36)
[2016-08-26] MEDS: ALBUTEROL/IPRATROPIUM 3 ML NEB RESP TX SCH ×4 (01:03→19:56)
[2016-08-26] MEDS: AZTREONAM 2,000 MG in SODIUM CHLORIDE 0.9% 100 ML IV SCH ×2 (01:16→09:08)
[2016-08-26] MEDS: VANCOMYCIN INJ 1,500 MG in SODIUM CHLORIDE 0.9% 500 ML IV SCH ×3 (02:31→17:45)
[2016-08-26 06:03] LABS: Basophils % 0.4 % (0.0-0.8); Hematocrit 32.3 VOL% (35.7-47.0); Hemoglobin 11.1 GM/DL (12.0-16.0); Immature Granulocytes % 8.3 %; Immature Granulocytes Absolute 0.62 #; Lymphocytes # 0.6 10*3/uL (1.4-4.0); Lymphocytes % 7.5 % (21.3-54.2); Mean Corpuscular HGB Conc 34.4 GM/DL (32-36); Mean Corpuscular Hemoglobin 27 PG (27-34); Mean Corpuscular Volume 77.5 FL (87-102); Mean Platelet Volume 13.7 FL (9.6-12.0); Monocytes # 0.3 10*3/uL (0.11-0.8); Monocytes % 3.5 % (1.7-12.7); Neutrophils % 80.3 % (38.7-73.9); Red Blood Count 4.17 MC/CUMM (3.8-5.5); Red Cell Distribution Width 16.5 % (9.3-17.3); White Blood Count 7.5 T/CUMM (4-12)
[2016-08-26 06:09] LABS: HIV Antigen/Antibody Result Nonreactive (Nonreactive)
[2016-08-26 06:11] LABS: Platelet Count 77 T/CUMM (130-400)
[2016-08-26] MEDS: LEVOFLOXACIN INJ 750 MG in PREMIX 1 EACH IV SCH (06:24)
[2016-08-26 06:28] LABS: Calcium 7.8 MG/DL (8.5-10.1); Osmolality,Calculated 272.8 MOS/KG (273-304)
[2016-08-26 06:34] LABS: Albumin 2.1 G/DL (3.4-5.0); Bilirubin,Total 0.6 MG/DL (0.2-1.0); Calcium 7.9 MG/DL (8.5-10.1); Magnesium 2.1 MG/DL (1.8-2.4); Osmolality,Calculated 279.4 MOS/KG (273-304); Phosphorous 2.1 MG/DL (2.5-4.9); Total Protein 5.5 G/DL (6.4-8.3)
--- NOTE | 2016-08-26 06:56 | EKG Report ---
Stationary ECG Study [facility] Test Date: 08/26/2016 6:56:50 AM Pat Name: JOSE MIGUEL NEW Department: Room: 220 Gender: F Education Intern: GARCIA : 1985 Requested by: Francois Melendez Order Number: [id number] Reading MD: FERNANDEZ ZAYAS Intervals [place] Rate: 79 P: 69 VT: 152 QRS: 84 QRSD: 101 T: 35 QT: 351 QTc: 385 Interpretive Statements SINUS RHYTHM Electronically Signed On 08-26-16 08:56:36 CDT by FERNANDEZ ZAYAS [email or web address]
[2016-08-26 07:03] LABS: Hypochromasia 1+; Lymphocytes 6 % (20-55); Metamyelocytes 2 %; Microcytosis 1+; Ovalocytes Slight; Segmented Neutrophils 88 % (50-85); Total Cells Counted 100
[2016-08-26 07:04] LABS: Platelet Estimate Decreased
--- NOTE | 2016-08-26 07:54 | XRay Report ---
XR chest 1V portable Indication: COPD Comparison: Chest x-ray 08/22/2016 Technique: Portable AP chest was performed. Findings: Airspace consolidation right upper chest is stable compared to previous study. Stranding is increased in the lower left chest suggesting interval development of atelectatic change. Chest is otherwise stable. Impression: 1. Worsening atelectasis left lung base. 2. Stable confluent airspace disease compatible with consolidation right upper chest. Continued follow-up is recommended to ensure complete resolution. 08/26/2016 7:51 AM PROCEDURE INTERPRETED AT [facility] DEPARTMENT OF RADIOLOGY Final Report Signed by: Dr. John Gee
--- NOTE | 2016-08-26 08:40 | Pulmonology Progress Note ---
Pulmonary - PN: Subj Interval history: This 31-year-old female came in with community-acquired right upper lobe lobar pneumonia. Cultures have been negative thus far. She is on empiric antibiotics. She was septic with an elevated lactic acid level on admission. Discussed the broad-spectrum antibiotics. Follow-up chest x-ray shows little change in the consolidation right upper lobe. She does not have any significant underlying problem that would lead her to have this. Exam (Progress Note) - Constitutional Vitals: Period Temp Pulse Resp BP Sys/Segundo Pulse Ox Last 24 Hr 98.1 F-102.2 F 73-105 18-20 140-156/82-92 92-100 Exam: Patient is alert oriented vital signs normal. She had fever yesterday but none today. Pupils react to light. Throat is clear. Neck supple no bruits. Chest shows rales in the right upper lobe otherwise clear. Heart normal rate rhythm no murmurs. Abdomen soft nontender no masses. Extremities no clubbing cyanosis or edema. Calves nontender Results - Labs CBC & BMP: 08/26/16 05:36 08/26/16 05:36 Lab Results: I have reviewed the past 24 hour labs - Diagnostic Findings Procedure: Chest x-ray: image reviewed by me (She has a round consolidated infiltrate right upper lobe. Her CT scan showed air bronchograms. Again this is quite consistent with a community-acquired pneumonia.) Assessment and Plan (1) Pneumonia Status: Acute Assessment and plan: Community-acquired right upper lobe lobar pneumonia. Pneumococcus would be the most likely organism. No cultures have come back positive. Continue current broad-spectrum antibiotics. Probably need to finish at least 7 days. She had fever initially and then again yesterday. Not unusual for this type pneumonia Current Visit: Yes Qualifiers: Laterality: right Lung location: upper lobe of lung (2) Sepsis Status: Acute Assessment and plan: Initially had elevated lactic acid level. That has resolved. Sepsis controlled. Current Visit: Yes
[2016-08-26] MEDS: PANTOPRAZOLE 40 MG TABLET PO SCH (09:07)
[2016-08-26] MEDS: amLODIPine 10 MG TABLET PO SCH (09:07)
[2016-08-26] MEDS: LISINOPRIL 10 MG TABLET PO SCH (09:08)
[2016-08-26] MEDS: NICOTINE 14 MG/24 HR PATCH TRANSDERM SCH (09:08)
[2016-08-26] MEDS: methylPREDNISolone SOD SUC 40 MG/1 ML VIAL IV SCH ×2 (09:30→20:14)
[2016-08-26] MEDS: FLUCONAZOLE INJ 100 MG in IV BAG 1 EACH IV SCH (13:25)
--- NOTE | 2016-08-26 13:26 | Hospitalist Progress Note ---
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 6)altered mental status- CT was ok, MS at baseline. 7)PUL pneumonia- continue antibiotics- vanc and levaquin and diflucan to cover the sputum culture. Current Visit: Yes Qualifiers: Laterality: right Lung location: upper lobe of lung (2) Sepsis Status: Acute Current Visit: Yes (3) Hyponatremia Status: Acute Current Visit: Yes (4) Acute kidney failure Status: Acute Current Visit: Yes (5) Hypokalemia Status: Acute Current Visit: Yes (6) Hypertension Status: Acute Current Visit: Yes (7) Encephalopathy, metabolic Status: Acute Current Visit: Yes (8) Smoker Status: Acute Current Visit: Yes Hospitalist: Subjective Interval history: Mrs Pizarro is doing ewll on room air and lying flat breathing comfortably this morning. She continues to have fever. Some cough, no shortness of breath. Appetite good. She declares that her drug use has nothing to do with being sick and unresponsive when she was admitted. She denies meth use and says she uses Xpills but doesn't know what is in them. Exam - Constitutional Vitals: Period Temp Pulse Resp BP Sys/Segundo Pulse Ox Last 24 Hr 98.1 F-102.2 F 73-105 18-20 140-156/82-94 92-100 General appearance: no acute distress, morbidly obese - Head Head exam: Present: normocephalic, atraumatic - Eye Eye exam: Present: EOMI. Absent: scleral icterus - Respiratory Respiratory exam: Present: rales (right upper lobe) - Cardiovascular Cardiovascular exam: Present: regular rate and rhythm - GI/Abdominal GI/Abdominal exam: Present: normal bowel sounds, soft. Absent: tenderness - Extremities Exam Extremities exam: Absent: edema Results - Labs CBC & BMP: 08/26/16 05:36 08/26/16 05:36 Lab Results: I have reviewed the past 24 hour labs
[2016-08-27] MEDS: ALBUTEROL/IPRATROPIUM 3 ML NEB RESP TX SCH ×3 (00:08→13:46)
[2016-08-27] MEDS: VANCOMYCIN INJ 1,500 MG in SODIUM CHLORIDE 0.9% 500 ML IV SCH ×2 (02:45→11:29)
[2016-08-27] MEDS: LEVOFLOXACIN INJ 750 MG in PREMIX 1 EACH IV SCH (06:32)
--- NOTE | 2016-08-27 09:12 | Pulmonology Progress Note ---
Pulmonary - PN: Subj Interval history: This 31-year-old female came in with community-acquired right upper lobe lobar pneumonia. Cultures have been negative thus far. She is on empiric antibiotics. She was septic with an elevated lactic acid level on admission. Discussed the broad-spectrum antibiotics. Follow-up chest x-ray shows little change in the consolidation right upper lobe. She does not have any significant underlying problem that would lead her to have this. 08/27/2016 sputum has come back showing Streptococcus pyogenes. This is unusual for a cause for pneumonia but in this case is likely the cause. It should be covered with her current combination of antibiotics including vancomycin and Levaquin. Probably could use amoxicillin or and self just as well. Clinically she is improved. Exam (Progress Note) - Constitutional Vitals: Period Temp Pulse Resp BP Sys/Segundo Pulse Ox Last 24 Hr 97.6 F-98.9 F 80-91 18-20 132-152/68-94 91-99 Exam: Patient is alert oriented vital signs normal. She had fever yesterday but none today. Pupils react to light. Throat is clear. Neck supple no bruits. Chest shows rales in the right upper lobe otherwise clear. Heart normal rate rhythm no murmurs. Abdomen soft nontender no masses. Extremities no clubbing cyanosis or edema. Calves nontender. Little change from yesterday. Results - Labs CBC & BMP: 08/26/16 05:36 08/26/16 05:36 Lab Results: I have reviewed the past 24 hour labs Assessment and Plan (1) Pneumonia Status: Acute Assessment and plan: Community-acquired right upper lobe lobar pneumonia. Pneumococcus would be the most likely organism. No cultures have come back positive. Continue current broad-spectrum antibiotics. Probably need to finish at least 7 days. She had fever initially and then again yesterday. Not unusual for this type pneumonia 08/27/2016 sputum culture has grown out Streptococcus pyogenes. This is covered with current regimen. May want to change to just Ancef or amoxicillin. Current Visit: Yes Qualifiers: Laterality: right Lung location: upper lobe of lung (2) Sepsis Status: Acute Assessment and plan: Initially had elevated lactic acid level. That has resolved. Sepsis controlled. 08/27/2016 this was due to her pneumonia and is improved. Current Visit: Yes
[2016-08-27] MEDS: amLODIPine 10 MG TABLET PO SCH (09:14)
[2016-08-27] MEDS: PANTOPRAZOLE 40 MG TABLET PO SCH (09:14)
[2016-08-27] MEDS: LISINOPRIL 10 MG TABLET PO SCH (09:14)
[2016-08-27] MEDS: NICOTINE 14 MG/24 HR PATCH TRANSDERM SCH (09:15)
[2016-08-27] MEDS: methylPREDNISolone SOD SUC 40 MG/1 ML VIAL IV SCH (09:15)
--- NOTE | 2016-08-27 10:25 | Discharge Summary ---
Hospital Course - Hospital Course Hospital Course: Ms Pizarro presented with RUL pneumonia. Her sputum culture has grown Strep pyogenes. She has responded to IV levaquin since admission and also vanc and aztreonam. She had sepsis at presentation which has now resolved. She has been afebrile for 24hours. She has been on room air for several days and denies cough or shortness of breath. She also had previously untreated HTN. She has been started on Norvasc and lisinopril and it has come down though at discharge I am increasing the lisinopril and starting her on verapamil so she can get these at [facility] form $ 4 list. She will establish primary care at [facility]. On admission she had meth and marijuana in her urine. She denies using these drugs, instead says she took X pills 2 weeks ago. She does acknowledge that she should stop using illicit drugs. I also spent 4 minutes counselling her to stop smoking. - Time spent with patient Time with patient DS: Greater than 30 minutes (exam, medicine reconciliation, documentation, discharge planning took 35 minutes) Diagnosis - Discharge Diagnosis (1) Pneumonia Status: Acute (2) Sepsis Status: Resolved (3) Hyponatremia Status: Resolved (4) Acute kidney failure Status: Resolved (5) Hypokalemia Status: Resolved (6) Hypertension Status: Chronic (7) Encephalopathy, metabolic Status: Resolved (8) Smoker Status: Chronic Specialty Discharge - Follow Up or Referrals Follow up with: Michael Kennedy [Physician] - 1 Week (follow up pneumonia, need CXR to demonstrate resolution) Discharge Plan - Discharge Data Disposition: Disch To Home/Self Care Condition at Discharge: Stable Discharge Diet: advance to your usual diet Activity: resume usual activities as tolerated (be sure to get plenty of rest as you recover ) - Discharge Medications New Fluconazole Tab [Diflucan Tab] 150 mg PO DAILY #3 tablet Lisinopril [Prinivil] 20 mg PO DAILY #30 tablet Nicotine 14 mg/24 Hr Patch [Nicoderm CQ 14 mg/24 hr Patch] 1 patch TRANSDERM DAILY patch predniSONE TAB [PredniSONE] 10 mg PO DAILY #10 tablet Verapamil Tab [Calan Tab] 80 mg PO TID #90 tablet Levofloxacin Tab [Levaquin Tab] 750 mg PO DAILY #7 tablet - Follow Up or Referral Follow Up: Michael Kennedy [Physician] - 1 Week (follow up pneumonia, need CXR to demonstrate resolution) - Forms/Instructions Exam - Constitutional Vitals: Period Temp Pulse Resp BP Sys/Segundo Pulse Ox Last 24 Hr 97.6 F-98.9 F 80-91 18-20 132-152/68-94 91-99 General appearance: normal weight, no acute distress - Eye Eye exam: Present: EOMI. Absent: scleral icterus - Respiratory Respiratory exam: Present: clear to auscultation bilaterally - Cardiovascular Cardiovascular exam: Present: regular rate and rhythm - GI/Abdominal GI/Abdominal exam: Present: normal bowel sounds, soft. Absent: tenderness - Extremities Exam Extremities exam: Absent: edema Discharge Results Procedures and tests throughout hospitalization: Pending Orders 08/22/16 06:30 Sputum Culture and Gram Stain Stat 08/22/16 18:28 Blood Culture Stat 08/23/16 04:00 Legionella Ag, Urine IN AM Streptococcus pneumoniae Ag, U IN AM 08/25/16 12:05 Blood Culture Stat 08/26/16 04:00 Iron, Liver Ts IN AM Labs on day of discharge: Labs from last 24 hours 08/27/16 09:21 Vancomycin Trough 19.2 Preliminary micro results at discharge 08/25/16 12:05 Blood Culture - Preliminary Blood No growth at 1 day 08/25/16 12:07 Blood Culture - Preliminary Blood No growth at 1 day 08/22/16 06:30 Sputum Culture - Preliminary Sputum Streptococcus pyogenes (grp a) Fior albicans Microstrep plus panel 1 08/22/16 18:28 Blood Culture - Preliminary Blood No growth at 3 days 08/22/16 18:28 Blood Culture - Preliminary Blood No growth at 3 days DS: Provider Date of admission: 08/22/16 22:15 Primary care physician: . No PCP Attending physician on admission: Abdelrahman Ayon MD Consults: 08/22/16 22:14 Consult to Physician [CONS] Routine Comment: right pneumonia, hyponatremia Consulting Provider: Pascual Schultz Person Notified: Dr. Schultz Date Notified: 08/23/16 Time Notified: 07:45 Consult Notification Comment: Seeing patient now. 08/23/16 00:59 Consult to Dietitian [CONS] Routine Reason for Dietitian: Diet Recommendations 08/25/16 12:43 Consult to Pharmacy [CONS] Routine Reason for Pharmacy Consult: Dose/Manage Vancomycin Discharging clinician: Veronika Rojo MD
[2016-08-27] MEDS: FLUCONAZOLE INJ 100 MG in IV BAG 1 EACH IV SCH (12:30)
[2016-08-27 20:30] VITALS: BP 152/80
== END 2016-08-27 13:55 | disposition home or self-care (01) | DRG 871 ==
LOC: N.ED 18:06 → SUATTDRO 22:14 → N.EDINP 22:14 → SUATTDRO 22:15 → N.CC 23:42 → N.2E 08-24 12:06
PROVIDERS: ADMIT Family Medicine; ATTEND Internal Medicine